=== PATIENT | female | born 1955 | race Two or more races ===

== ENCOUNTER 2022-05-27 06:29 | Day surgery (SDC) | payer OTHER ==
[~2022-05-27 06:29] MED LIST: ATACAND4 MG PO; VASOFLEX D1 CA1 EACH PO; ZESTRIL10 M1 PO
== END 2022-05-27 13:15 | disposition home or self-care (01) ==
LOC: CIR.AMB 06:29
PROVIDERS: ATTEND Surgery
DX: C82.84 Other types of follicular lymphoma, lymph nodes of axilla and upper limb (principal); Z88.8 Allergy status to other drugs, medicaments and biological substances; I11.9 Hypertensive heart disease without heart failure

== ENCOUNTER 2022-06-28 10:44 | Emergency (ER) | payer OTHER ==
[~2022-06-28] VITALS: Ht 152.4 cm; Wt 84.4 kg
== END 2022-06-28 13:41 | disposition home or self-care (01) ==
LOC: ER 10:44
DX: R22.32 Localized swelling, mass and lump, left upper limb (principal); Z88.6 Allergy status to analgesic agent